=== PATIENT | male | born 1990 | race Caucasian/White ===

== ENCOUNTER 2018-03-14 15:33 | Inpatient (IN) | payer OTHER ==
[2018-03-14] MEDS: ONDANSETRON 4 MG INJ IV (16:07)
[2018-03-14] MEDS: HYDROmorphONE 1 MG/ML SYG IV ×2 (16:08→16:12)
[2018-03-14] MEDS: SOD CHLORIDE 0.9% 1,000 ML IV (16:11)
[2018-03-14 16:18] LABS: ADD MAN DIFF? NO
[2018-03-14 16:20] LABS: BASOPHILS % 0.1 % (0.0-2.0); EOSINOPHILS % 0.2 % (0.0-7.0); HEMOGLOBIN 14.2 g/dl (14.0-18.0); LYMPHOCYTES # 1.2 10^3/ul (0.8-2.9); LYMPHOCYTES % 8.5 % (15.0-51.0); MEAN CORPUSCULAR HEMOGLOBIN 31.1 pg (29.0-33.0); MEAN CORPUSCULAR HGB CONC 33.8 g/dl (32.0-37.0); MEAN CORPUSCULAR VOLUME 92.1 fl (82.0-101.0); MEAN PLATELET VOLUME 9.6 fl (7.4-10.4); MONOCYTES % 6.9 % (0.0-11.0); NEUTROPHIL # 11.7 10^3/ul (1.6-7.5); NEUTROPHILS % 83.9 % (39.0-77.0); PLATELET COUNT 212 10^3/UL (140-415); RED BLOOD COUNT 4.56 10^6/ul (4.70-6.10); RED CELL DISTRIBUTION WIDTH 12.1 % (11.5-14.5)
[2018-03-14 16:26] LABS: ADD UMIC YES; UR ASCORBIC ACID NEGATIVE (NEGATIVE); UR BILIRUBIN (Dip) NEGATIVE (NEGATIVE); UR BLOOD (Dip) 1+ mg/dL (NEGATIVE); UR CLARITY CLEAR (CLEAR); UR COLOR YELLOW (YELLOW); UR GLUCOSE (Dip) NEGATIVE (NEGATIVE); UR KETONES (Dip) 2+ mg/dL (NEGATIVE); UR LEUKOCYTE ESTERASE (Dip) NEGATIVE Leu/ul (NEGATIVE); UR MUCUS FEW /HPF (NONE SEEN); UR NITRITE (Dip) NEGATIVE (NEGATIVE); UR RBC 5 /HPF (0-5); UR SPECIFIC GRAVITY (Dip) 1.026 (1.003-1.030); UR TOTAL PROTEIN (Dip) NEGATIVE (NEGATIVE); UR UROBILINOGEN (Dip) NEGATIVE (NEGATIVE); UR WBC 1 /HPF (0-5)
[2018-03-14 16:38] LABS: ALANINE AMINOTRANSFERASE 28 IU/L (13-69); ALBUMIN 5.2 g/dl (3.3-4.9); ALBUMIN/GLOBULIN RATIO 1.52; ALKALINE PHOSPHATASE 86 IU/L (42-121); ANION GAP 16 (8-16); ASPARTATE AMINO TRANSFERASE 18 IU/L (15-46); BILIRUBIN,INDIRECT 1.3 mg/dl (0-1.1); BILIRUBIN,TOTAL 1.3 mg/dl (0.2-1.3); BLOOD UREA NITROGEN 14 mg/dl (7-20); CALCIUM 9.7 mg/dl (8.4-10.2); CARBON DIOXIDE 27 mmol/L (21-31); CHLORIDE 104 mmol/L (97-110); CREATININE 0.85 mg/dl (0.61-1.24); GLUCOSE 115 mg/dl (70-220); LIPASE 172 U/L (23-300); POTASSIUM 3.6 mmol/L (3.5-5.1); SODIUM 143 mmol/L (135-144); TOTAL PROTEIN 8.6 g/dl (6.1-8.1)
[2018-03-14] MEDS: PIPER-TAZO 3.375 GM IV (PMX) 100 ML IVPB (17:38)
[2018-03-14 18:43] LABS: INR 1.04; PROTIME 13.7 Sec (11.9-14.9); PT RATIO 1.1
[2018-03-14] MEDS ORDERED: ACETAMINOPHEN 325 MG TAB PO (19:00)
[2018-03-14] MEDS ORDERED: ONDANSETRON 4 MG INJ IV (19:00)
[2018-03-14] MEDS ORDERED: SOD CHLORIDE 0.45% 1,000 ML IV (19:37)
[2018-03-14] MEDS ORDERED: morphine 2 MG INJ IV (20:00)
[2018-03-14] MEDS ORDERED: NACL 0.9% 3 ML SYG IV (20:00)
[2018-03-14] MEDS: SOD CHLORIDE 0.45% 1,000 ML IV (22:25)
[2018-03-15] MEDS: PIPER-TAZO 3.375 GM IV (PMX) 100 ML IVPB ×2 (01:30→09:46)
[2018-03-15 06:10] LABS: HEMOGLOBIN A1C 5.1 % (0-5.9)
[2018-03-15] MEDS ORDERED: FAMOTIDINE 20 MG INJ (07:00)
[2018-03-15 07:48] LABS: ADD MAN DIFF? NO
[2018-03-15 07:49] LABS: BASOPHILS % 0.3 % (0.0-2.0); EOSINOPHILS # 0.1 10^3/ul (0.0-0.5); EOSINOPHILS % 1.3 % (0.0-7.0); HEMATOCRIT 41.2 % (42.0-52.0); HEMOGLOBIN 13.8 g/dl (14.0-18.0); LYMPHOCYTES # 1.7 10^3/ul (0.8-2.9); LYMPHOCYTES % 17.4 % (15.0-51.0); MEAN CORPUSCULAR HEMOGLOBIN 30.9 pg (29.0-33.0); MEAN CORPUSCULAR HGB CONC 33.5 g/dl (32.0-37.0); MEAN CORPUSCULAR VOLUME 92.2 fl (82.0-101.0); MEAN PLATELET VOLUME 10.5 fl (7.4-10.4); MONOCYTE # 0.8 10^3/ul (0.3-0.9); NEUTROPHIL # 7.1 10^3/ul (1.6-7.5); NEUTROPHILS % 72.7 % (39.0-77.0); PLATELET COUNT 206 10^3/UL (140-415); RED BLOOD COUNT 4.47 10^6/ul (4.70-6.10); RED CELL DISTRIBUTION WIDTH 12.1 % (11.5-14.5)
[2018-03-15 07:49] LABS: WHITE BLOOD COUNT 9.8 10^3/ul (4.8-10.8)
[2018-03-15 07:55] LABS: ANION GAP 13 (8-16); BLOOD UREA NITROGEN 9 mg/dl (7-20); CALCIUM 9.2 mg/dl (8.4-10.2); CARBON DIOXIDE 28 mmol/L (21-31); CHLORIDE 105 mmol/L (97-110); CREATININE 0.94 mg/dl (0.61-1.24); GLUCOSE 84 mg/dl (70-220); POTASSIUM 3.8 mmol/L (3.5-5.1); SODIUM 142 mmol/L (135-144)
[2018-03-15] MEDS: SOD CHLORIDE 0.45% 1,000 ML IV ×2 (12:14→23:07)
[2018-03-15] MEDS ORDERED: DIPHENHYDRAMINE 50 MG INJ IV (14:00)
[2018-03-15] MEDS ORDERED: FENTAnyl 50 MCG/ML VIAL IV (14:00)
[2018-03-15] MEDS ORDERED: LABETALOL HCL 20MG INJ IV (14:00)
[2018-03-15] MEDS ORDERED: PROCHLORPERAZINE 10 MG INJ IV (14:00)
[2018-03-15] MEDS ORDERED: OXYCODONE/ACETAMINOPHEN (5/325) TAB PO ×2 (14:00)
[2018-03-15] MEDS ORDERED: HYDROmorphONE 1 MG/5 ML IV SYRINGE IV ×2 (14:00→19:30)
[2018-03-15] MEDS ORDERED: MEPERIDINE 25 MG INJ IV (14:00)
[2018-03-15] MEDS ORDERED: ONDANSETRON 4 MG INJ IV (14:00)
[2018-03-15] MEDS ORDERED: hydrALAzine 20 MG INJ IV (14:00)
[2018-03-15] MEDS ORDERED: morphine (1 MG/ML) 10ML SYRINGE IV (14:00)
[2018-03-15] MEDS ORDERED: TRIMETHOBENZAMIDE 100 MG/ML VIAL IM (14:00)
[2018-03-15] MEDS ORDERED: METOCLOPRAMIDE 10 MG INJ IV (14:00)
[2018-03-15] MEDS ORDERED: MIDAZOLAM 1 MG/ML 2 ML INJ (17:42)
[2018-03-15] MEDS ORDERED: PROPOFOL 20 ML (17:42)
[2018-03-15] MEDS ORDERED: ROCURONIUM 50 MG INJ (17:42)
[2018-03-15] MEDS ORDERED: LIDOCAINE 1% (MDV) 20 ML INJ (17:43)
[2018-03-15] MEDS ORDERED: ROPIVACAINE 0.2% 20 ML VIAL ×3 (17:43→19:02)
[2018-03-15] MEDS ORDERED: CEFAZOLIN 1 GM INJ (18:07)
[2018-03-15] MEDS ORDERED: SUGAMMADEX SODIUM 200 MG/2 ML VIAL IV (18:51)
[2018-03-15] MEDS ORDERED: BUPIVACAINE 0.25% (MPF) 30 ML INJ (19:23)
[2018-03-15] MEDS ORDERED: LIDOCAINE 1%/EPI 30 ML INJ (19:23)
[2018-03-15] MEDS ORDERED: HYDROCODONE/APAP (5/325) TAB PO (19:30)
[2018-03-15] MEDS: HYDROCODONE/APAP (5/325) TAB PO (19:56)
[2018-03-15] MEDS: HYDROmorphONE 1 MG/5 ML IV SYRINGE IV (20:00)
[2018-03-15] MEDS: morphine 2 MG INJ IV (21:24)
[2018-03-15] MEDS: ONDANSETRON 4 MG INJ IV (21:24)
[2018-03-16] MEDS: morphine 2 MG INJ IV ×2 (02:16→06:16)
[2018-03-16 06:11] LABS: ADD MAN DIFF? NO
[2018-03-16 06:21] LABS: BASOPHILS % 0.2 % (0.0-2.0); EOSINOPHILS % 0.2 % (0.0-7.0); HEMATOCRIT 39.1 % (42.0-52.0); HEMOGLOBIN 13.2 g/dl (14.0-18.0); LYMPHOCYTES # 1.9 10^3/ul (0.8-2.9); LYMPHOCYTES % 16.6 % (15.0-51.0); MEAN CORPUSCULAR HGB CONC 33.8 g/dl (32.0-37.0); MEAN CORPUSCULAR VOLUME 91.8 fl (82.0-101.0); MONOCYTE # 0.8 10^3/ul (0.3-0.9); MONOCYTES % 6.7 % (0.0-11.0); NEUTROPHIL # 8.7 10^3/ul (1.6-7.5); PLATELET COUNT 204 10^3/UL (140-415); RED BLOOD COUNT 4.26 10^6/ul (4.70-6.10); RED CELL DISTRIBUTION WIDTH 12.1 % (11.5-14.5)
[2018-03-16 06:21] LABS: WHITE BLOOD COUNT 11.5 10^3/ul (4.8-10.8)
[2018-03-16 06:50] LABS: ANION GAP 15 (8-16); BLOOD UREA NITROGEN 7 mg/dl (7-20); CALCIUM 9.1 mg/dl (8.4-10.2); CARBON DIOXIDE 29 mmol/L (21-31); CHLORIDE 100 mmol/L (97-110); CREATININE 0.83 mg/dl (0.61-1.24); GLUCOSE 82 mg/dl (70-220); POTASSIUM 3.9 mmol/L (3.5-5.1); SODIUM 140 mmol/L (135-144)
== END 2018-03-16 14:38 | disposition home or self-care (01) | DRG 343 ==
LOC: FTE 15:33 → PP2 03-15 11:39 → MS3 18:46
PROC: 0DTJ4ZZ Resection of Appendix, Percutaneous Endoscopic Approach (ICD-10-PCS; principal; 2018-03-15 14:30)
DX: K35.80 Unspecified acute appendicitis (principal)
CPT/HCPCS: 36415; 74176; 80048; 80053; 81001; 83036; 83690; 85025; 85610; 86850; 86900; 86901; 88304; 96374; 96375; 99285-25